=== PATIENT | male | born 1965 ===

== ENCOUNTER 2016-11-17 19:08 | Emergency (ER) | payer OTHER ==
[2016-11-17] MEDS ORDERED: NO HOME MEDICATION XX (20:42)
== END 2016-11-17 21:22 ==
LOC: EDMED 19:08
PROC: 0HQGXZZ Repair Left Hand Skin, External Approach (ICD-10-PCS; principal; 2016-11-17)
DX: S61.211A Laceration without foreign body of left index finger without damage to nail, initial encounter (principal); W26.0XXA Contact with knife, initial encounter; Y92.019 Unspecified place in single-family (private) house as the place of occurrence of the external cause